=== PATIENT | female | born 1990 | race Caucasian/White ===

== ENCOUNTER → 2022-01-15 | Outpatient (CLI) | payer OTHER ==
[~2022-01-15] MED LIST: COLACE 100MG C100 MG PO; FAMOTIDINE20 MG PO; HYDROCODON-ACE1 EAC2 PO; HYDROCODON-ACE1 EAC4 PO; IBUPROFEN800 MG PO; LABETALOL HCL200 MG PO; OMEPRAZOLE20 MG PO; PHENERGAN 25 MG25 M1 PO; ZOFRAN 8 MG TAB8 MG PO
[2022-01-15 14:16] LABS: HEMOGLOBIN 11.7 gm/dl (12.3-15.3); RED BLOOD COUNT 4.36 M/UL (4.00-5.10)
[2022-01-15 14:57] LABS: BUN/CREATININE RATIO 8 (0-10)
== END ==
LOC: GENOP 13:09
PROVIDERS: Obstetrics & Gynecology
DX: Z01.812 Encounter for preprocedural laboratory examination (principal)
CPT/HCPCS: 36415; 80053; 81001; 85025

== ENCOUNTER 2022-01-16 08:34 | Inpatient (IN) | payer OTHER ==
[~2022-01-16] VITALS: Ht 157.5 cm; Wt 117.9 kg
[~2022-01-16 08:34] MED LIST changes: -COLACE 100MG C100 MG PO; -HYDROCODON-ACE1 EAC2 PO; -HYDROCODON-ACE1 EAC4 PO; -IBUPROFEN800 MG PO
[2022-01-16] MEDS ORDERED: IBUPROFEN800 MG PO (13:13)
[2022-01-16] MEDS ORDERED: COLACE 100MG C100 MG PO (13:13)
[2022-01-16] MEDS ORDERED: HYDROCODON-ACE1 EAC4 PO (13:13)
[2022-01-16] MEDS ORDERED: HYDROCODON-ACE1 EAC2 PO (13:17)
[2022-01-17 03:46] LABS: HEMOGLOBIN 9.9 gm/dl (12.3-15.3)
== END 2022-01-17 18:50 | disposition home or self-care (01) | DRG 787 ==
LOC: OB 08:34
PROVIDERS: ADMIT Obstetrics & Gynecology
PROC: 4A1HXCZ Monitoring of Products of Conception, Cardiac Rate, External Approach (ICD-10-PCS; 2022-01-16)
PROC: 10D00Z1 Extraction of Products of Conception, Low, Open Approach (ICD-10-PCS; principal; 2022-01-16 11:00)
DX: O34.211 Maternal care for low transverse scar from previous cesarean delivery (principal); O10.92 Unspecified pre-existing hypertension complicating childbirth; O99.214 Obesity complicating childbirth; Z20.822 Contact with and (suspected) exposure to COVID-19; E66.01 Morbid (severe) obesity due to excess calories; Z3A.38 38 weeks gestation of pregnancy; Z37.0 Single live birth; Z98.890 Other specified postprocedural states; Z28.310 Unvaccinated for COVID-19; Z91.040 Latex allergy status; Z91.010 Allergy to peanuts; Z87.891 Personal history of nicotine dependence; Z83.49 Family history of other endocrine, nutritional and metabolic diseases; Z82.49 Family history of ischemic heart disease and other diseases of the circulatory system
CPT/HCPCS: 82800; 85014; 85018; C9113; J0690; J1170; J2405; J2550; J2590; J2704

== ENCOUNTER 2022-01-22 17:30 | Observation (INO) | payer OTHER ==
[~2022-01-22 17:30] MED LIST changes: +COLACE 100MG C100 MG PO; +HYDROCODON-ACE1 EAC2 PO; +HYDROCODON-ACE1 EAC4 PO; +IBUPROFEN800 MG PO
[2022-01-22 19:52] LABS: HEMOGLOBIN 10.1 gm/dl (12.3-15.3); RED BLOOD COUNT 3.75 M/UL (4.00-5.10); WHITE BLOOD COUNT 7.8 K/UL (4.5-11.0)
[2022-01-22 20:20] LABS: BUN/CREATININE RATIO 16 (0-10)
[2022-01-22 23:48] LABS: BUN/CREATININE RATIO 19 (0-10)
[2022-01-23] LABS: HEMOGLOBIN 9.7 gm/dl (12.3-15.3); RED BLOOD COUNT 3.59 M/UL (4.00-5.10); WHITE BLOOD COUNT 8.3 K/UL (4.5-11.0)
[2022-01-23] MEDS ORDERED: PROCARDIA XL30 MG PO (10:27)
== END 2022-01-24 13:53 | disposition home or self-care (01) ==
LOC: ER1 17:30 → CDU 21:01 → OB 22:49
PROVIDERS: Physician Assistant; ADMIT Obstetrics & Gynecology
DX: O11.5 Pre-existing hypertension with pre-eclampsia, complicating the puerperium (principal); O10.93 Unspecified pre-existing hypertension complicating the puerperium; O99.215 Obesity complicating the puerperium; Z87.891 Personal history of nicotine dependence; Z91.041 Radiographic dye allergy status; Z91.010 Allergy to peanuts
CPT/HCPCS: 36415; 80053; 81001; 83615; 83735; 84550; 85025; 85610; 85730; 87086; 96361; 96374; 99284; J0360; J0610; J2405; J3475